=== PATIENT | female | born 1950 | race Caucasian/White ===

== ENCOUNTER → 2018-01-16 | Outpatient (CLI) | payer MEDICARE, BC | LOC: MC.RAD 08:25 | DX: N64.1 Fat necrosis of breast (principal); N61.0 Mastitis without abscess ==

== ENCOUNTER 2020-01-24 09:49 | Inpatient (IN) | payer MEDICARE, BC ==
[~2020-01-24] VITALS: Ht 154.9 cm; Wt 101.0 kg
[2020-02-26] VITALS (12 sets, daily range): BP systolic 110–166; BP diastolic 54–79; PULSE 51–71; TEMP 97–98.3
[2020-02-26] MEDS ORDERED: OSCAL 500 TAB500 MG PO (07:27)
[2020-02-26] MEDS ORDERED: INDERAL40 MG PO (07:27)
[2020-02-26] MEDS ORDERED: PRINZIDE 12.5 M1 TA1 PO (07:28)
[2020-02-26] MEDS ORDERED: MOBIC15 MG PO (07:28)
[2020-02-27 04:15] VITALS: BP 134/66; PULSE 75; TEMP 98.2
[2020-02-27 06:10] LABS: HEMATOCRIT 38.4 % (37.0-47.0); HEMOGLOBIN 12.6 g/dl (12.5-16.0)
[2020-02-27 07:54] VITALS: BP 135/68; PULSE 70; TEMP 98.8
[2020-02-27 11:56] VITALS: BP 122/50; PULSE 66; TEMP 98.1
[2020-02-27 15:45] VITALS: BP 135/71; PULSE 65; TEMP 97.8
[2020-02-27 19:37] VITALS: BP 122/62; PULSE 65; TEMP 98.9
[2020-02-27 23:47] VITALS: BP 117/52; PULSE 67; TEMP 98.1
[2020-02-28 04:02] VITALS: BP 130/61; PULSE 70; TEMP 98.8
[2020-02-28] MEDS ORDERED: NORCO 325 MG-51 TAB PO (06:33)
[2020-02-28] MEDS ORDERED: ASPI325T6 PO (06:33)
[2020-02-28] MEDS ORDERED: ROXICODONE 55 MG/TAB PO (06:33)
[2020-02-28] MEDS ORDERED: SENOKOT S 50 MG1 TAB PO (06:34)
[2020-02-28 07:00] VITALS: BP 121/57; PULSE 96; TEMP 98.7
[2020-02-28 12:00] VITALS: BP 151/84; BP 154/59; PULSE 72; PULSE 94; TEMP 97.3; TEMP 98.1
== END 2020-02-28 15:20 | disposition home or self-care (01) | DRG 470 ==
LOC: JCC 02-26 06:54
PROVIDERS: ADMIT Orthopaedic Surgery
PROC: 0SRC0J9 Replacement of Right Knee Joint with Synthetic Substitute, Cemented, Open Approach (ICD-10-PCS; principal; 2020-02-26 09:30)
DX: M17.11 Unilateral primary osteoarthritis, right knee (principal); Z68.41 Body mass index [BMI] 40.0-44.9, adult; E66.01 Morbid (severe) obesity due to excess calories
CPT/HCPCS: A9284; C1713; C1776; J0690; J2250; J2270; J2370; J2405; J2704; J3010; J7030; J7120